=== PATIENT | male | born 1970 | race American Indian/Alaskan Native ===

== ENCOUNTER 2021-04-08 10:17 | Outpatient (CLI) | payer OTHER ==
--- NOTE | 2021-04-08 11:35 | XRay Report ---
RIGHT KNEE AP AND LATERAL VIEWS INDICATION: RIGHT KNEE PAIN. COMPARISON: No relevant prior imaging study available. FINDINGS: No acute skeletal abnormality. There is tricompartmental osteoarthrosis greatest at the medial tibiofemoral compartment where there is advanced joint space narrowing and subchondral change. There is mild quadriceps enthesopathy. No significant effusion. IMPRESSION: 1. No acute findings. Signer Name: Todd Lyons MD Signed: 04/08/2021 11:29 AM Workstation Name: [id number]
--- NOTE | 2021-04-08 11:35 | XRay Report ---
LUMBAR SPINE 3 VIEWS INDICATION / CLINICAL INFORMATION: BACK PAIN. COMPARISON: None available. FINDINGS: VERTEBRAE: No fracture. No significant malalignment. DISC SPACES:Moderate discogenic degenerative disease L3-4. FACET JOINTS:No significant abnormality. ADDITIONAL FINDINGS: None. IMPRESSION: 1. No significant abnormality. Signer Name: Alek Nascimento MD Signed: 04/08/2021 11:29 AM Workstation Name: [id number]
--- NOTE | 2021-04-08 14:57 | XRay Report ---
LEFT ANKLE 2 VIEW(S) INDICATION / CLINICAL INFORMATION: LEFT ANKLE PAIN COMPARISON: None available. FINDINGS: BONES / JOINT(S): No acute fracture or subluxation. No significant arthritis. There is a small planta r and small calcaneal enthesophyte. There is a well-corticated ossific fragment along the medial mall eolus, likely sequela of prior trauma. SOFT TISSUES: No significant abnormality. ADDITIONAL FINDINGS: None. Signer Name: Scott Kearney DO Signed: 04/08/2021 2:51 PM Workstation Name: [id number]
== END 2021-04-08 10:18 | disposition home or self-care (01) ==
LOC: XRAY 10:17
PROVIDERS: ATTEND Internal Medicine
DX: M17.11 Unilateral primary osteoarthritis, right knee (principal); M47.816 Spondylosis without myelopathy or radiculopathy, lumbar region; M77.32 Calcaneal spur, left foot
CPT/HCPCS: 72100